=== PATIENT | female | born 1955 | race African-American/Black ===

== ENCOUNTER 2017-01-03 11:05 | Inpatient (IN) | payer MEDICAID, OTHER ==
[~2017-01-03] VITALS: Ht 160 cm; Wt 66.2 kg
[2017-01-03 11:50] LABS: Basophils # (auto) 0.1 uL; Basophils % (auto) 0.6 % (0.0-2.0); Eosinophils # (auto) 0.6 uL; Eosinophils % (auto) 5.2 % (0.0-7.0); Hematocrit 36.2 % (36.0-46.0); Hemoglobin 11.4 g/dL (12.2-16.2); Lymphocytes # (auto) 3.5 uL; Lymphocytes % (auto) 28.6 % (10.0-50.0); Mean Corpuscular Hemoglobin 27.5 pg (28.0-32.0); Mean Corpuscular Hgb Conc. 31.7 g/dL (32.0-36.0); Mean Corpuscular Volume 86.7 fL (80.0-100.0); Mean Platelet Volume 8.3 fL (7.4-10.4); Monocytes # (auto) 1.1 uL; Monocytes % (auto) 9.4 % (0.0-12.0); Neutrophils # (auto) 6.8 uL; Neutrophils % (auto) 56.2 % (37.0-80.0); Platelet Count (auto) 544 10^3/uL (140-450); Red Cell Distribution Width 17.9 % (11.6-16.0); White Blood Cell 12.1 10^3/uL (4.4-10.8)
[2017-01-03 12:02] LABS: Albumin 2.6 g/dL (3.4-5.0); Anion Gap 10 (5-15); Aspartate Aminotransferase 13 U/L (15-37); BUN/Creatinine Ratio 7.6; Blood Urea Nitrogen 7 mg/dL (7-18); Calcium 8.6 mg/dL (8.5-10.1); Carbon Dioxide 23 mmol/L (21-32); Chloride 104 mmol/L (98-107); GFR African American 80 mL/min; GFR Non-African American 66 mL/min; Glucose 109 mg/dL (74-106); Magnesium 1.8 mg/dL (1.6-2.6); Potassium 3.9 mmol/L (3.5-5.1); Sodium 137 mmol/L (136-145)
[2017-01-03 12:07] LABS: Alkaline Phosphatase 117 U/L (45-117); Bilirubin, Total 0.3 mg/dL (0.2-1.0); Total Protein 7.6 g/dL (6.4-8.2)
[2017-01-03 12:14] LABS: B-Type Natriuretic Peptide 24.21 pg/mL (0-100)
[2017-01-03] MEDS ORDERED: ALBUTEROL SULF 2.5 MG/0.5ML(0.5%) NEB SOLN HHN STA (12:36)
[2017-01-03 12:45] LABS: Temperature: 21.9 C (20.0-25.0)
[2017-01-03] MEDS ORDERED: methylPREDNISolone SOD SUCC 125 MG/2 ML VL IV ONE (12:45)
[2017-01-03] MEDS ORDERED: IPRATROPIUM BROM 0.5 MG/2.5ML INH SOL NEB ONE (12:45)
[2017-01-03] MEDS ORDERED: NITROGLYCERIN 0.4 MG SL TAB SL PRN (15:15)
[2017-01-03] MEDS ORDERED: ONDANSETRON HCL 4 MG/2 ML VIAL IV PRN (15:15)
[2017-01-03] MEDS ORDERED: MORPHINE SULF INJ 2 MG/ML SYRINGE 1ML IV PRN (15:15)
[2017-01-03] MEDS ORDERED: METOPROLOL TARTRATE 25 MG TAB PO ONE (15:45)
[2017-01-03] MEDS ORDERED: ASPirin 81 mg TAB PO ONE (15:45)
[2017-01-03 17:15] VITALS: BP 96/60
[2017-01-03] MEDS: ALBUTEROL SULF 2.5 MG/0.5ML(0.5%) NEB SOLN NEB SCH ×2 (18:52→23:55)
[2017-01-03] MEDS: IPRATROPIUM BROM 0.5 MG/2.5ML INH SOL NEB SCH ×2 (18:52→23:55)
[2017-01-03] MEDS: DOXYCYCLINE HYC 100MG/250ML 250 ML IV SCH (19:15)
[2017-01-03 20:00] VITALS: BP 102/67
[2017-01-03] MEDS: LORazepam 2MG/ML-1ML VIAL IV PRN (20:41)
[2017-01-03 20:58] LABS: Urine Bilirubin Negative (Negative); Urine Blood Negative /uL (Negative); Urine Color Yellow (Yellow); Urine Glucose Normal (Normal); Urine Ketone Negative (Negative); Urine Mucus FEW (None Seen); Urine Nitrite Negative (Negative); Urine RBC 3 /hpf (0 - 4); Urine Squamous Epithelial Cell FEW /hpf (<5); Urine Urobilinogen Normal (Negative)
[2017-01-03 22:00] VITALS: BP 102/67
[2017-01-03] MEDS: ZOLPIDEM TARTRATE 5 MG TAB PO PRN (22:23)
[2017-01-03] MEDS: methylPREDNISolone SOD SUCC 40 MG/ML VL IV SCH (22:24)
[2017-01-03] MEDS: ATORVASTATIN 20 MG TAB PO SCH (22:24)
[2017-01-03] MEDS: METOPROLOL TARTRATE 25 MG TAB PO SCH (22:24)
[2017-01-03] MEDS: HYDROcodone-ACET 5/325MG TAB PO PRN (22:37)
[2017-01-04] VITALS (7 sets, daily range): BP systolic 93–113; BP diastolic 55–74
[2017-01-04] MEDS: DOXYCYCLINE HYC 100MG/250ML 250 ML IV SCH ×2 (02:49→15:16)
[2017-01-04] MEDS: HYDROcodone-ACET 5/325MG TAB PO PRN ×2 (06:14→21:47)
[2017-01-04 06:16] LABS: Basophils # (auto) 0 uL; Basophils % (auto) 0.3 % (0.0-2.0); Eosinophils # (auto) 0 uL; Eosinophils % (auto) 0.1 % (0.0-7.0); Hematocrit 31.8 % (36.0-46.0); Hemoglobin 10.1 g/dL (12.2-16.2); Lymphocytes # (auto) 1.8 uL; Lymphocytes % (auto) 21.4 % (10.0-50.0); Mean Corpuscular Hemoglobin 27.5 pg (28.0-32.0); Mean Corpuscular Hgb Conc. 31.9 g/dL (32.0-36.0); Mean Corpuscular Volume 86.3 fL (80.0-100.0); Mean Platelet Volume 8.7 fL (7.4-10.4); Monocytes # (auto) 0.2 uL; Monocytes % (auto) 2.4 % (0.0-12.0); Neutrophils # (auto) 6.2 uL; Neutrophils % (auto) 75.8 % (37.0-80.0); Platelet Count (auto) 486 10^3/uL (140-450); Red Cell Distribution Width 17.9 % (11.6-16.0); White Blood Cell 8.2 10^3/uL (4.4-10.8)
[2017-01-04 06:19] LABS: Anion Gap 12 (5-15); BUN/Creatinine Ratio 18.5; Blood Urea Nitrogen 17 mg/dL (7-18); Calcium 8.9 mg/dL (8.5-10.1); Carbon Dioxide 23 mmol/L (21-32); Chloride 102 mmol/L (98-107); GFR African American 80 mL/min; GFR Non-African American 66 mL/min; Glucose 161 mg/dL (74-106); Potassium 4.4 mmol/L (3.5-5.1); Sodium 137 mmol/L (136-145)
[2017-01-04] MEDS: IPRATROPIUM BROM 0.5 MG/2.5ML INH SOL NEB SCH ×4 (07:06→23:56)
[2017-01-04] MEDS: ALBUTEROL SULF 2.5 MG/0.5ML(0.5%) NEB SOLN NEB SCH ×4 (07:06→23:56)
[2017-01-04] MEDS: ASPirin 81 mg TAB PO SCH (10:20)
[2017-01-04] MEDS: methylPREDNISolone SOD SUCC 40 MG/ML VL IV SCH ×2 (10:20→21:48)
[2017-01-04] MEDS: METOPROLOL TARTRATE 25 MG TAB PO SCH ×2 (10:22→21:48)
[2017-01-04] MEDS: LORazepam 2MG/ML-1ML VIAL IV PRN ×2 (11:09→18:59)
[2017-01-04] MEDS: ATORVASTATIN 20 MG TAB PO SCH (21:46)
[2017-01-04] MEDS: ZOLPIDEM TARTRATE 5 MG TAB PO PRN (21:46)
[2017-01-05] MEDS: DOXYCYCLINE HYC 100MG/250ML 250 ML IV SCH (04:55)
[2017-01-05] MEDS: HYDROcodone-ACET 5/325MG TAB PO PRN ×3 (04:56→20:10)
[2017-01-05 05:32] VITALS: BP 138/79
[2017-01-05 06:14] LABS: Basophils # (auto) 0 uL; Basophils % (auto) 0.3 % (0.0-2.0); Eosinophils # (auto) 0 uL; Hemoglobin 10.5 g/dL (12.2-16.2); Lymphocytes # (auto) 1.6 uL; Lymphocytes % (auto) 14.8 % (10.0-50.0); Mean Corpuscular Hemoglobin 27.4 pg (28.0-32.0); Mean Corpuscular Hgb Conc. 31.9 g/dL (32.0-36.0); Mean Corpuscular Volume 85.7 fL (80.0-100.0); Mean Platelet Volume 8.7 fL (7.4-10.4); Monocytes # (auto) 0.5 uL; Monocytes % (auto) 4.3 % (0.0-12.0); Neutrophils # (auto) 8.8 uL; Neutrophils % (auto) 80.6 % (37.0-80.0); Platelet Count (auto) 477 10^3/uL (140-450); Red Cell Distribution Width 17.4 % (11.6-16.0)
[2017-01-05 06:59] LABS: Albumin 2.6 g/dL (3.4-5.0); Alkaline Phosphatase 112 U/L (45-117); Anion Gap 12 (5-15); Aspartate Aminotransferase 27 U/L (15-37); BUN/Creatinine Ratio 23.1; Bilirubin, Total 0.2 mg/dL (0.2-1.0); Blood Urea Nitrogen 18 mg/dL (7-18); Calcium 9.1 mg/dL (8.5-10.1); Carbon Dioxide 23 mmol/L (21-32); Chloride 106 mmol/L (98-107); GFR African American 97 mL/min; GFR Non-African American 80 mL/min; Glucose 145 mg/dL (74-106); Potassium 4.5 mmol/L (3.5-5.1); Sodium 141 mmol/L (136-145); Total Protein 7.1 g/dL (6.4-8.2)
[2017-01-05 08:15] VITALS: BP 93/67
[2017-01-05 09:00] VITALS: BP 88/56
[2017-01-05] MEDS: METOPROLOL TARTRATE 25 MG TAB PO SCH (10:00)
[2017-01-05] MEDS: ASPirin 81 mg TAB PO SCH (10:50)
[2017-01-05] MEDS: methylPREDNISolone SOD SUCC 40 MG/ML VL IV SCH ×2 (10:51→22:02)
[2017-01-05 13:00] VITALS: BP 84/51
[2017-01-05] MEDS: ALBUTEROL SULF 2.5 MG/0.5ML(0.5%) NEB SOLN NEB SCH ×2 (13:37→18:41)
[2017-01-05] MEDS: IPRATROPIUM BROM 0.5 MG/2.5ML INH SOL NEB SCH ×2 (13:37→18:41)
[2017-01-05] MEDS: LORazepam 2MG/ML-1ML VIAL IV PRN ×2 (14:19→23:04)
[2017-01-05 17:00] VITALS: BP 94/56
[2017-01-05 21:30] VITALS: BP 92/50
[2017-01-05] MEDS: ATORVASTATIN 20 MG TAB PO SCH (22:02)
[2017-01-05] MEDS: DOXYCYCLINE 100 MG TAB/CAP PO SCH (22:02)
[2017-01-05] MEDS: MUPIROCIN 2% OINT 22GM EACHNOSTRI SCH (22:02)
[2017-01-06] MEDS: HYDROcodone-ACET 5/325MG TAB PO PRN (03:00)
[2017-01-06 05:22] VITALS: BP 97/66
[2017-01-06] MEDS: IPRATROPIUM BROM 0.5 MG/2.5ML INH SOL NEB SCH ×3 (07:09→18:00)
[2017-01-06] MEDS: ALBUTEROL SULF 2.5 MG/0.5ML(0.5%) NEB SOLN NEB SCH ×3 (07:09→18:00)
[2017-01-06 08:15] VITALS: BP 117/74
[2017-01-06] MEDS: LORazepam 2MG/ML-1ML VIAL IV PRN (08:45)
[2017-01-06 09:09] VITALS: BP 117/74
[2017-01-06] MEDS: MUPIROCIN 2% OINT 22GM EACHNOSTRI SCH (10:41)
[2017-01-06] MEDS: methylPREDNISolone SOD SUCC 40 MG/ML VL IV SCH (10:41)
[2017-01-06] MEDS: ASPirin 81 mg TAB PO SCH (10:42)
[2017-01-06] MEDS: DOXYCYCLINE 100 MG TAB/CAP PO SCH (10:42)
[2017-01-06] MEDS ORDERED: FUROSEMIDE 20 MG/2 ML VIAL IV ONE (11:30)
[2017-01-06] MEDS ORDERED: POTASSIUM CHL 20 Meq TABLET PO ONE (11:30)
[2017-01-06 12:47] VITALS: BP 103/63
[2017-01-06 14:02] VITALS: BP 117/74
== END 2017-01-06 18:35 | disposition home or self-care (01) | DRG 140 ==
LOC: ER 11:05 → TELE-WESTW 11:06
PROVIDERS: ADMIT Internal Medicine; ATTEND Internal Medicine
DX: J44.1 Chronic obstructive pulmonary disease with (acute) exacerbation (principal); J96.21 Acute and chronic respiratory failure with hypoxia; J18.9 Pneumonia, unspecified organism; E44.0 Moderate protein-calorie malnutrition; J44.9 Chronic obstructive pulmonary disease, unspecified; I10 Essential (primary) hypertension; F41.9 Anxiety disorder, unspecified; F17.210 Nicotine dependence, cigarettes, uncomplicated; F32.9 Major depressive disorder, single episode, unspecified; I25.10 Atherosclerotic heart disease of native coronary artery without angina pectoris; J45.909 Unspecified asthma, uncomplicated; Z79.899 Other long term (current) drug therapy; Z86.73 Personal history of transient ischemic attack (TIA), and cerebral infarction without residual deficits; Z90.710 Acquired absence of both cervix and uterus; I25.2 Old myocardial infarction; Z68.25 Body mass index [BMI] 25.0-25.9, adult; J96.22 Acute and chronic respiratory failure with hypercapnia
CPT/HCPCS: 36415; 36600; 71010; 71020; 78582; 80048; 80053; 81001; 82805; 83735; 83880; 84439; 84443; 84481; 84484; 85025; 85379; 87081; 93005; 93306; 93970; 94640; 96374; 99291; J3490